=== PATIENT | female | born 2000 | race African-American/Black ===

== ENCOUNTER 2024-07-20 11:38 | Emergency (ER) | payer BC, SELFPAY ==
[2024-07-20 12:18] VITALS: BP 113/84; PULSE 108; RESP 16; TEMP 36.6; O2SAT 98
[2024-07-20 12:38] LABS: EDSTREPNEGPOS1 Negative (Negative)
--- NOTE | 2024-07-20 13:42 | PC.NURSE ---
1300 Patient aware of delay due to urgent situation; patient states she has had a nice nap.
--- NOTE | 2024-07-20 15:30 | ED.URI ---
HPI - URI/Sore Throat General Chief Complaint: Upper Respiratory Infection Stated Complaint: sore throat,running a fever,chills Time Seen by Provider: 07/20/24 12:24 Source: patient, RN notes reviewed and old records reviewed Mode of arrival: ambulatory Limitations: no limitations History of Present Illness HPI Narrative: 24-year-old female to Express Care for complaint of fever and sore throat for 3 days. Patient endorses that she is currently 8 weeks with her 1st . Patient states that she has taken Tylenol home with little relief. Patient afebrile but tachycardic in triage. Patient able to tolerate fluids by mouth. Patient denies difficulty swallowing, shortness of breath, abdominal pain, allergies, pertinent medical history. Patient resting in exam room, appears tired and uncomfortable. Respirations even and nonlabored. Patient in no acute distress. Related Data Home Medications Medication Instructions Recorded Confirmed prenat.vits,maryann,byu-benx-frssr 1 tablet PO DAILY 07/20/24 07/20/24 Allergies Allergy/AdvReac Type Severity Reaction Status Date / Time No Known Allergies Allergy Verified 07/20/24 12:17 Review of Systems Review of Systems: All systems reviewed & are unremarkable except as noted in HPI and below Constitutional: Constitutional: Reports as per HPI and Reports fever(s) Eyes: Eyes: Reports no additional eye complaints ENT: Reports as per HPI and Reports sore throat Cardiovascular: Cardiovascular: Reports no additional cardiovascular complaints, Denies chest pain and Denies dyspnea Respiratory: Respiratory: Reports no additional respiratory complaints, Denies cough and Denies dyspnea Musculoskeletal: Musculoskeletal: Reports no additional musculoskeletal complaints Neurologic: Reports system reviewed and no additional complaints, except as documented Psychiatric: Psychiatric: Reports no additional psychiatric complaints PMFSH Comments At the time of my signature, I reviewed and agree with the nursing past medical, surgical, social, and family history. There is no relevant family history pertinent to the patient complaint. Exam Const: General: cooperative, no acute distress, alert, tired appearing, uncomfortable and well nourished Nutritional Appearance: well nourished Orientation/consciousness: patient oriented x3 Limitations: no limitations HENMT: Head: normal to inspection Ears: external ears normal Face/Nose/Sinus: Normal external nose present, Normal nares present, normal facial exam, No erythema and No edema Face and sinus: normal facial exam, no erythema and no edema Mouth: Yes Normal oral and palatal mucosa present Throat: uvula midline, abnormal tonsil bilateral erythema, exudates and hypertrophy 2+ and posterior oropharynx abnormal erythema Eyes: General: appearance normal, both eyes and all related structures Neck: Neck: normal visual inspection, full ROM and no meningeal signs Lymphatic: no lymphadenopathy noted and no lymphedema noted Chest: Chest palpation & inspection: normal inspection of the chest Resp: Effort & Inspection: normal respiratory effort and able to speak in complete sentences Auscultation: clear to auscultation bilaterally Cardio: Jugular venous distension: no JVD Rate: regular rate Rhythm: regular rhythm Back/Spine/Pelvis: Cervical Spine: cervical ROM normal Skin: General skin exam: normal color, no rashes or lesions noted and turgor normal Neuro: General: patient oriented x3, gait normal, moves all extremities and no meningeal signs Speech: normal speech Gait exam (Neuro): Normal gait present Extrem: General: normal to inspection, full ROM and capillary refill normal Psych: Appearance: grossly normal and well kempt Course Course Emergency Course: Some parts of this dictation were generated by voice recognition software and may contain typographical and/or grammatical inaccuracies. Level of Care: Express Care Visit V
== END 2024-07-20 13:37 | disposition home or self-care (01) ==
PROVIDERS: Emergency Provider Nurse Practitioner Family
DX: J02.9 Acute pharyngitis, unspecified (principal)
CPT/HCPCS: 87081; 87880; 99213; G0463

== ENCOUNTER 2024-10-04 14:04 | Emergency (ER) | payer BC, SELFPAY ==
[2024-10-04 14:33] VITALS: BP 123/88; PULSE 102; RESP 18; TEMP 36.4; O2SAT 98
--- NOTE | 2024-10-04 16:15 | ED.SKABFB ---
HPI - Skin/Abscess/Foreign Bdy General Chief complaint: Skin/Abscess/Foreign Body Stated complaint: Inner Thigh Boil/Rash Time Seen by Provider: 10/04/24 15:26 Source: patient and RN notes reviewed Mode of arrival: ambulatory Limitations: no limitations History of Present Illness HPI narrative: Patient presents today with a large lump to the inner thigh since last night and a small lump to the anterior proximal upper leg. States she has not had lumps like this before. They are very painful to touch. No interventions prior to arrival. Related Data Home Medications ?Medication ?Instructions ?Recorded ?Confirmed ?Last Taken ?Type prenat.vits,maryann,drt-nyyx-pwgda 1 tablet PO DAILY 07/20/24 10/04/24 Unknown History Allergies Allergy/AdvReac Type Severity Reaction Status Date / Time No Known Allergies Allergy Verified 10/04/24 14:30 Review of Systems Review of Systems: CONSTITUTIONAL: Denies body aches, fever, chills, or sweats. EYES: Denies visual changes, redness, or discharge. ENT: Denies rhinorrhea, congestion, sore throat, or otalgia. CARDIOVASCULAR: Denies chest pain, palpitations, or edema. RESPIRATORY: Denies cough or dyspnea. GASTROINTESTINAL: Denies abdominal pain, nausea, vomiting, or diarrhea. GENITOURINARY: Denies dysuria or hematuria. SKIN: Two lumps to right upper leg MUSCULOSKELETAL: Denies back pain, joint pain, or myalgia. NEUROLOGIC: Denies headache, numbness, tingling, or weakness. PSYCH: Denies depression or anxiety. PMFSH Comments At time of signature, I have reviewed and agree with nursing past medical, surgical, social and family history unless otherwise noted. Please see nursing chart for further information. There is no relevant family history pertinent to the presenting complaint Exam Narrative: GENERAL: Well-appearing, well-nourished, and in no acute distress. HEAD: Normocephalic, atraumatic. EYES: EOMI. No redness or drainage. Conjunctivae normal. ENT: Mucous membranes pink and moist. NECK: Normal AROM. CHEST: No respiratory distress. EXTREMITIES: Normal range of motion. No edema. SKIN: Warm, dry, no rash. 1 x 1 cm fluctuant abscess to the right anterior upper thigh. Second abscess to the groin area was 5 x 3 cm fluctuant lesion, tender to palpation. NEURO: No focal deficits. Alert and oriented x3. Gait steady. PSYCH: Normal affect. No signs of depression or anxiety. Course Course Level of Care: Express Care Visit Vital Signs Vital signs: Vital Signs Temperature 97.5 F L 10/04/24 14:33 Pulse Rate 102 H 10/04/24 14:33 Respiratory Rate 18 10/04/24 14:33 Blood Pressure 123/88 10/04/24 14:33 Pulse Oximetry 98 10/04/24 14:33 Oxygen Delivery Room Air 10/04/24 14:33 Temperature 97.5 F L 10/04/24 14:33 Pulse Rate 102 H 10/04/24 14:33 Respiratory Rate 18 10/04/24 14:33 Blood Pressure 123/88 10/04/24 14:33 Pulse Oximetry 98 10/04/24 14:33 Oxygen Delivery Room Air 10/04/24 14:33 Reviewed Procedures Abscess I/D lower extremity: Date of Incision: 10/04/24 Time of Incision: 16:00 Side (if applicable): right Local Anesthetic: lidocaine 1% Amount of anesthesia used (mL): 6 (Between two abscesses) Technique: incised with #11 blade Amount of fluid expressed (mL): 3 Irrigation: No Packing used?: none I&D Results: Pus and Blood Abcess I&D Additional Comments: 2 abscesses were lanced, 1 large abscess to the inner groin area and a small abscess to the upper thigh. Over were cleansed with Betadine prior to procedure and dressed with Band-Aid afterwards. Patient tolerated procedure well. MDM - Skin/Abscess/Foreign Bdy MDM Narrative Medical decision making narrative: Abscesses lanced and drained. Patient will be placed on Keflex for infection. Anticipatory guidance given. Differential Diagnosis Differential diagnosis: Likely abscess of skin or subcutaneous tissue and cellulitis Critical Care Time Critical Care Time Critical Care Time: No Discharge Plan Discharge Clinical Impression: Abscess of skin or subcutaneous tissue Qualifiers: Site of cutaneous abscess: extremity Site of cutaneous abscess of extremity: lower extremity Laterality: right Qualified Code(s): L02.415 - Cutaneous abscess of right lower limb Patient Disposition: Home, Self-Care Condition: Stable Instructions: Antibiotic Form, Abscess (ED), Abscess Incision and Drainage (DC) Additional Instructions: Your abscesses were lanced and drained. Wash with soap and water daily. Do not washed with alcohol or peroxide. Do not use Neosporin. Do not submerge yourself in standing water such as pools, hot tubs, or bathtubs until your abscesses or scabbed over. Take the Keflex as prescribed until gone. Take Tylenol for pain if needed. Follow-up with your PCP or OBGYN in 3-4 days if symptoms are not improving. Your blood pressure was elevated above 120/80 today at Urgent Care. This puts you above the threshold for follow up. Please schedule a followup visit with your personal physician as soon as possible, for further evaluation and treatment. Even blood pressure exceeding 120/80 may indicate pre-hypertension. Patient Language: Marshallese Prescriptions: New cephalexin 500 mg capsule 500 mg PO Q6H 7 Days Qty: 28 0RF No Action Vitamin Tablet 1 tablet PO DAILY Follow-up/Referrals: PHYSICIAN,NAIL WELTER [Primary Care Provider] - Time of Disposition: 16:25
== END 2024-10-04 16:29 | disposition home or self-care (01) ==
PROVIDERS: Emergency Provider Nurse Practitioner
DX: L02.415 Cutaneous abscess of right lower limb (principal)
CPT/HCPCS: 10060; 99213; G0463; J2003

== ENCOUNTER 2025-01-01 00:52 | Inpatient (IN) | payer BC, MEDICAID, SELFPAY ==
[2025-01-01] VITALS (78 sets, daily range): BP systolic 104–158; BP diastolic 49–95; PULSE 73–142; RESP 16–21; TEMP 36.2–37.1; O2SAT 96–100; BMI 40.6
--- NOTE | ~2025-01-01 | US_ITS ---
Pelvic ultrasound CLINICAL HISTORY: biophysical profile, cervical length, SKYLAR FINDINGS: heart rate on M-mode image is 137 bpm. Fetus is in the vertex presentation. Placenta is infectious waste technician iorly located. Amniotic fluid index is 11.2. Cervix poorly visualized. BIOPHYSICAL PROFILE breathin out of 2. movement: 2 out of 2. tone: 2 out of 2. Amniotic fluid pocket: 2 out of 2. Biophysical profile score: 8 out of 8. IMPRESSION: 1. Single fetus with heart rate of 137 bpm. 2. Biophysical profile score of 8 out of 8. Reviewed, dictated and finalized at location M.
[2025-01-01] MEDS: DEXTROSE 5%/LACTATED RINGERS 1,000 ML 100 ML IV CONT (01:55)
--- NOTE | 2025-01-01 02:27 | P.HP_ITS ---
H&P: HPI History of Present Illness Date/Time: 01/01/25 02:27 Chief Complaint: Thirty-two weeks bleeding Narrative: 24-year-old 1 para 0 whose EDC is 02/26/2025 confirmed by early ultrasound presents at 32 weeks gestation was some bleeding. No bleeding has been seen here but recurrent variables are noted. Her has been complicated by an abnormal 1hours GTT but she could not do a 3hour to nausea and vomiting. Her her A1c was normal. She has received fluids and recurrent deep decelerations are noted. Review of Systems Review of Systems: CONSTITUTIONAL: Denies body aches, fever, chills, or sweats. EYES: Denies visual changes, redness, or discharge. ENT: Denies rhinorrhea, congestion, sore throat, or otalgia. CARDIOVASCULAR: Denies chest pain, palpitations, or edema. RESPIRATORY: Denies cough or dyspnea. GASTROINTESTINAL: Denies abdominal pain, nausea, vomiting, or diarrhea. GENITOURINARY: Denies dysuria or hematuria. SKIN: Two lumps to right upper leg MUSCULOSKELETAL: Denies back pain, joint pain, or myalgia. NEUROLOGIC: Denies headache, numbness, tingling, or weakness. PSYCH: Denies depression or anxiety. Meds Home Medications and Allergies Home Medications ?Medication ?Instructions ?Recorded ?Confirmed ?Type prenat.vits,maryann,ida-gmzi-maznm 1 tablet PO DAILY 07/20/24 10/04/24 History cephalexin 500 mg capsule 500 mg PO Q6H 7 days #28 caps 10/04/24 Rx Allergies Allergy/AdvReac Type Severity Reaction Status Date / Time No Known Allergies Allergy Verified 10/04/24 14:30 Vital Signs Vital Signs - 24 hr 01/01/25 01:01 01/01/25 01:06 01/01/25 01:11 Pulse Rate 80 Blood Pressure 133/70 Pulse Oximetry 98 98 99 01/01/25 01:15 01/01/25 01:16 01/01/25 01:21 Pulse Rate 80 Blood Pressure 123/73 Pulse Oximetry 99 98 01/01/25 01:26 01/01/25 01:30 01/01/25 01:31 Pulse Rate 91 Blood Pressure 128/74 Pulse Oximetry 99 98 01/01/25 01:36 01/01/25 01:41 01/01/25 01:46 Pulse Rate Blood Pressure Pulse Oximetry 98 98 99 01/01/25 01:49 01/01/25 01:54 01/01/25 01:59 Pulse Rate Blood Pressure Pulse Oximetry 99 97 98 01/01/25 02:04 01/01/25 02:09 01/01/25 02:14 Pulse Rate Blood Pressure Pulse Oximetry 98 99 97 01/01/25 02:19 01/01/25 02:24 01/01/25 02:26 Pulse Rate 97 Blood Pressure 133/92 H Pulse Oximetry 98 98 Exam Narrative: GENERAL: Well-appearing, well-nourished, and in no acute distress. HEAD: Normocephalic, atraumatic. EYES: EOMI. No redness or drainage. Conjunctivae normal. ENT: Mucous membranes pink and moist. NECK: Normal AROM. CHEST: No respiratory distress. EXTREMITIES: Normal range of motion. No edema. SKIN: Warm, dry, no rash. 1 x 1 cm fluctuant abscess to the right anterior upper thigh. Second abscess to the groin area was 5 x 3 cm fluctuant lesion, tender to palpation. NEURO: No focal deficits. Alert and oriented x3. Gait steady. PSYCH: Normal affect. No signs of depression or anxiety. Const: General: cooperative, healthy appearing and comfortable Nutritional Appearance: overweight Orientation/consciousness: oriented to person, oriented to place and oriented to time HENMT: Head: normal to inspection Resp: Effort & Inspection: normal respiratory effort Cardio: Rate: regular rate Rhythm: regular rhythm Heart sounds: S1 normal heart sound present and S2 normal heart sound present GI: Inspection: normal to inspection : External Female Exam: normal external appearance Speculum Exam - Vagina: normal appearance of the vagina Speculum Exam - Cervix: normal appearance of the cervix (No active bleeding seen. Recurrent decelerations noted) Assessment and Plan Assessment and plan (1) with history of pre-term labor: Code(s): O09.219 - Supervision of with history of pre-term labor, unspecified trimester Status: Acute (2) Bleeding: Code(s): R58 - Hemorrhage, not elsewhere classified Status: Acute Plan Patient will need section. Furnace Builder made aware.
--- OUTSIDE RECORDS SUMMARY | 2025-01-01 02:35 | XMS_ITS | CONTINUITY OF CARE DOCUMENT ---
Author Name aleksandra lake Address Unknown Organization [facility] Address [address] [place] [address] Phone [phone] Care Team Providers Care Winder Hand Name Role Phone Damaris Bojorquez MD Unavailable Damaris Bojorquez MD Unavailable [phone] INSURANCE PROVIDERS Payer name Policy type / Coverage type [place] red [employer] party ID SELF PAY HEALTHCARE AND FAMILY SERVICES Medicaid 1 [id number] [facility] [id number]
--- OUTSIDE RECORDS SUMMARY | 2025-01-01 02:35 | XMS_ITS | CONTINUITY OF CARE DOCUMENT ---
Author Name aleksandra lake Address Unknown Organization [facility] Address [address] [place] [address] Phone [phone] Care Team Providers Care Leasing Machine Tender Name Role Phone Damaris Bojorquez MD Unavailable Damaris Bojorquez MD Unavailable [phone] INSURANCE PROVIDERS Payer name Policy type / Coverage type [place] red republican ID SELF PAY HEALTHCARE AND FAMILY SERVICES Medicaid 1 [id number] [facility] [id number]
--- NOTE | 2025-01-01 02:47 | P.PNAN_ITS ---
Anes - Initial Pre Proc Eval Procedure: Primary C/S Date/Time: 01/01/25 02:47 Surgeon: Ayaz Walker MD Pre Op Diagnosis: Pre term labor, non reassuring testing Pre Op Diagnosis: vaginal bleeding, cramping Patient Data Age: 24 Gender: F Height: 1.7 m Weight: 117.7 kg Last Vital Signs Pulse 82 01/01/25 02:30 BP 139/86 01/01/25 02:30 Pulse Ox 100 01/01/25 02:44 Allergies Allergy/AdvReac Type Severity Reaction Status Date / Time No Known Allergies Allergy Verified 01/01/25 02:45 Home Medications ?Medication ?Instructions ?Recorded ?Confirmed ?Type prenat.vits,maryann,exn-oaqs-rbioj 1 tablet PO DAILY 07/20/24 01/01/25 History cephalexin 500 mg capsule 500 mg PO Q6H 7 days #28 caps 10/04/24 Rx hydrocodone 5 mg-acetaminophen 325 1 tablet PO Q4H PRN pain #30 tabs 01/01/25 Rx mg tablet Patient hx anesthesia problems: none Family hx anesthesia problems: none Results Review: All pre-operative results and documents have been reviewed as part of the pre- operative evaluation. Anes - Eval Final PreProcedure Day of Procedure 01/01/25 02:47 Patient weight: morbidly obese Heart: regular rate and rhythm Lungs: clear to auscultation and normal air movement Airway: Mallampati scale class II Neurological: alert and oriented Last oral intake: >/= 8 hours ASA classification: III Emergent: no Anesthetic plan: proceed Anesthesia type and monitoring: regional spinal and standard monitoring Results Review: All pre-operative results and documents have been reviewed as part of the pre- operative evaluation. Informed Consent: The patient's anesthetic plan and its attendant risks and benefits were discussed with the patient/family/POA. Questions were solicited and answers provided to the satisfaction of the patient/family/POA.
[2025-01-01 03:00] LABS: Basophils Percent Auto 0.1 % (0.2-1.2); Eosinophils Absolute Auto 0.1 K/mm3 (0-0.3); Eosinophils Percent Auto 0.7 % (0-4.4); Hematocrit 38.6 % (37.0-47.0); Immature Granulocyte Absolute 0.04 K/mm3 (0.00-0.031); Immature Granulocyte Percent A 0.5 % (0-0.5); Lymphocytes Absolute Auto 1.66 K/mm3 (0.9-3.2); Lymphocytes Percent Auto 20.6 % (18.3-44.2); Mean Corpuscular HGB Conc 33.7 g/dl (32-36); Mean Corpuscular Hemoglobin 29.7 pg (26-34); Mean Corpuscular Volume 88.1 fl (80-100); Mean Platelet Volume 8.9 fl (7.4-10.4); Monocytes Absolute Auto 0.5 K/mm3 (0.1-0.6); Monocytes Percent Auto 6.6 % (2.6-8.5); Neutrophils Absolute Auto 5.7 K/mm3 (1.3-6.7); Neutrophils Percent Auto 71.5 % (45.5-73.1); Platelet Count Result 224 k/mm3 (150-375); Red Blood Count 4.38 M/mm3 (4.2-5.4); Red Cell Distribution Width 13.1 % (11.5-14.5)
[2025-01-01] MEDS: ACETAMINOPHEN 500 MG TABLET 1000 MG PO (03:06)
[2025-01-01] MEDS: FAMOTIDINE 20 MG/2 ML VIAL IV PUSH (03:07)
[2025-01-01] MEDS: ONDANSETRON INJ 4 MG/2 ML VIAL IV PUSH (03:07)
[2025-01-01 03:10] LABS: Alanine Aminotransferase 29 U/L (6-35); Albumin Level 3.9 g/dL (3.5-5.1); Alkaline Phosphatase 110 U/L (38-126); Anion Gap 11 mmol/L (4-12); Aspartate Amino Transferase 28 U/L (14-36); Bilirubin,Total 0.5 mg/dL (0.2-1.3); Blood Urea Nitrogen 4 mg/dL (7-17); Calcium 9.3 mg/dL (8.4-10.2); Carbon Dioxide 20 mmol/L (22-30); Chloride 104 mmol/L (98-107); Estimated CRCL calculation 173 ml/min; Estimated Glomerular Filt Rate > 60; Glucose 177 mg/dL (65-110); Potassium 3.7 mmol/L (3.4-5.0); Sodium 135 mmol/L (137-145)
[2025-01-01 03:51] LABS: HIV 1/2 Ab P24 Ag Result Negative (Negative)
[2025-01-01 03:53] LABS: Syphilis IgG/IgM Antibody Negative (Negative)
--- NOTE | 2025-01-01 04:03 | W.PM.OBCSD ---
OB - Delivery Note Procedure Delivery date: 01/01/25 Pre-op diagnosis: Other (Bleeding and nonreassuring heart tones) Post-op Diagnosis: Same Induction method: None Delivery monitor: External FHT and External Uterine Prior to decision for section, ACOG/SM labor guidelines were considered and discussed with the patient and staff. Decision made to proceed with the section.: Yes Procedure Performed: Primary Surgeon: Ayaz Walker MD Anesthesia type: Spinal Description of Procedure/Findings: The patient was admitted at 32 weeks gestation with possible rupture of membranes and vaginal bleeding recurrent deep decelerations were present. She was offered low-transverse section as there was no time to transfer. After tape formed consent she was taken back prepped draped in normal sterile fashion placed in the supine position. Under excellent spinal anesthetic the abdomen was entered in Pfannenstiel fashion progressive layers of fascia. Fascia incised midline carried number dock fashion bilaterally. Underlying muscles sharply dissected. Parietal peritoneum male by Sahara clamps and by sharp dissection carried superiorly and inferiorly dome of the bladder. Bladder blade was placed in a bladder blade returned a low transverse incision made there was virtually no thinning of the lower uterine segment it was a couple inches thick. The breech was delivered double footling followed by sweeping the arms medially and the head in a flexed position cord clamped x2 cut infant passed off the table with a small cry placenta delivered intact manually. Uterus delivered on the abdomen wrapped in moist towel. After assuring no membranes or debris remained in the uterus, uterus closed continuous running locking 0 Vicryl from lateral edge to lateral edge this was repeated with a 2nd imbricating running locking 0 Vicryl from lateral edge to lateral edge. Hemostasis was assured. Ovaries and tubes appeared within normal limits. The hysterotomy incision appeared the intact. The uterus returned to the abdomen. The laps removed and accounted for the hysterotomy incision inspected last time. The incision on the fascia then closed with continuous running 0 Vicryl from lateral edge to lateral edge. Irrigation subcutaneous layer and the skin closed with 4 Monocryl QBL was 330. All sponge needle instrument counts were correct. Cardinal Lorenzo had been called in the form the transfer team in is working on the baby at this point. There were no immediate complications Estimated Blood Loss: 330 Drains: No Packing: No Pathology: Yes (Placenta) Complications: No immediate complications Condition: Stable Disposition: PACU [place] Baby Date of : 01/01/25 Time of : 03:45 Gestational Age by Date: 32 Infant gender: Male presentation: other (Double footling breech) Placenta delivery description: Manual Removal Cord Vessel Description: 3 Vessels
--- NOTE | 2025-01-01 04:07 | P.DS_ITS ---
DS: Admitting Diagnosis Discharge Date 01/02/2025 Admitting Diagnosis labor/bleeding DS: Discharge Diagnosis Discharge Diagnosis (1) with history of pre-term labor: Code(s): O09.219 - Supervision of with history of pre-term labor, unspecified trimester Status: Acute (2) Bleeding: Code(s): R58 - Hemorrhage, not elsewhere classified Status: Acute DS: Summary Hospital Course Reason for hospitalization: Patient was admitted at 32 weeks gestation with bleeding breech presentation and nonreassuring heart tones she underwent low-transverse section on the precision honing machine operator of . Hospital Course: Patient's hospital course unremarkable. She remained afebrile. She was up, vo iding without difficulty, eating regular diet, ambulating, voiding without difficulty and generally without complaints. Time Spent with Patient Time attestation: Total time spent providing and/or coordinating discharge services: Exam Const: General: cooperative, healthy appearing and comfortable Orientation/consciousness: oriented to person, oriented to place and oriented to time Resp: Effort & Inspection: normal respiratory effort Cardio: Rate: regular rate Rhythm: regular rhythm Heart sounds: S1 normal heart sound present and S2 normal heart sound present GI: Inspection: normal to inspection and incision (Wound is clean dry and intact) DS: Data Data Completed and Pending Labs on day of discharge: Labs from last 24 hours 01/01/25 02:53 WBC 8.0 RBC 4.38 Hgb 13.0 Hct 38.6 MCV 88.1 MCH 29.7 MCHC 33.7 RDW 13.1 Plt Count 224 MPV 8.9 Immature Gran % (Auto) 0.5 Neut % (Auto) 71.5 Lymph % (Auto) 20.6 Kimball % (Auto) 6.6 Eos % (Auto) 0.7 Baso % (Auto) 0.1 L Lymph # (Auto) 1.66 Kimball # (Auto) 0.5 Eos # (Auto) 0.1 Baso # (Auto) 0.0 Abs Immat Gran (auto) 0.04 H Absolute Neuts (auto) 5.7 Absolute Nucleated RBC 0.000 Nucleated RBC % 0.0 Sodium 135 L Potassium 3.7 Chloride 104 Carbon Dioxide 20 L Anion Gap 11 BUN 4 L Creatinine 0.55 L Estim Creat Clear Calc 173 Estimated GFR > 60 Glucose 177 H Calcium 9.3 Total Bilirubin 0.5 AST 28 ALT 29 Alkaline Phosphatase 110 Total Protein 7.0 Albumin 3.9 Syphilis IgG/IgM Ab Negative HIV 1&2 Ab/P24 Ag 4thGn Negative Blood Type B Positive Antibody Screen Negative Discharge Plan Discharge Attending physician on discharge: Ayaz Salvador Discharging Clinician: Ayaz Salvador Patient Disposition: Home, Self-Care Activity: may shower, no straining and pelvic rest Diet: heart healthy Wound Care Instructions: follow printed instructions Patient Instructions: Antibiotic Form Patient Language: Canadian Stand Alone Forms: General Discharge Information Follow-up/Referrals: Ayaz Salvador MD [Physician] - Discharge Medications: New hydrocodone-acetaminophen 5-325 mg tablet 1 tablet PO Q4H PRN (Reason: pain) Qty: 30 0RF Continued Vitamin Tablet 1 tablet PO DAILY Date of admission: 01/01/25 00:52 Primary Care Provider: PHYSICIAN,SUPERVISOR INSPECTING Admitting Provider: Ayaz Salvador Attending physician on admission: Ayaz Salvador Condition: Stable
--- NOTE | 2025-01-01 05:34 | LDADM ---
This patient, aKtalina Villa, was admitted to Labor/Delivery/Recovery 119 on 01/01/25 at 00:52. Plans for labor, pain management and were discussed with patient. Patient/family oriented to hospital policies and general routines including ID bracelet, bed and alarms, visiting hours, pain management, procedures, bathroom and other care routines, personal items, smoking policy, room service/diet and guest tray routines, infant security routines, and visiting hours. Patient/Family are encouraged to report perceived risks to care and to ask questions if they do not understand what they are told or what they should do. See OBIX for further documentation.
[2025-01-01] MEDS: OXYTOCIN 30 UNITS/NS 500 ML 30 UNITS/500 ML BAG 125 UNITS IV CONT (05:35)
[2025-01-01 06:44] LABS: Amphetamine Screen Urine Negative (Negative); Barbiturate Screen Urine Negative (Negative); Benzodiazepines Screen Urine Negative (Negative); Cannabinoid Screen Urine Negative (Negative); Cocaine Screen Urine Negative (Negative); Methadone Screen Urine Negative (Negative); Opiate Screen Urine Negative (Negative); Phencyclidine Screen Urine Negative (Negative)
[2025-01-01] MEDS: DEXTROSE 5%/0.45% SOD CHL 1,000 ML 125 ML IV CONT (09:10)
[2025-01-01] MEDS: MULTIVIT/MIN/PREN/FOL AC/IRON TABLET 1 TAB PO (09:55)
[2025-01-01] MEDS: SIMETHICONE 80 MG TAB.CHEW PO ×2 (09:55→14:25)
[2025-01-01] MEDS: ACETAMINOPHEN 325 MG TABLET 650 MG PO ×3 (09:55→22:27)
[2025-01-01] MEDS: DOCUSATE SODIUM 100 MG CAPSULE PO ×2 (09:55→16:15)
[2025-01-01] MEDS: KETOROLAC 15 MG/ML VIAL (*BKC) IV PUSH ×3 (09:55→22:27)
--- NOTE | 2025-01-01 10:00 | PC.NURSE ---
Introductions were made, then consulted with patient to assess needs related to . Breast pump was then provided due to baby being transferred to [facility], mother given a hospital breast pump and kit, she has her own Spectra pump at home but not sure when someone can bring it in for her. Instructions given on cleaning, care, usage, that there should be no pain, pumping schedule for milk production, collection, and storage of human milk. Patient was assessed for correct placement, flange size, to pump for comfort and nipple stretching/stimulation for adequate milk production every 3 hours (8 times in 24 hours) 1-2 times at night. Parents are encouraged to record the pumping schedule on the pumping log provided.?Mother voiced understanding of the education shared along with mom/baby guide and the pump measurement, flange fit handout for additional resource information. Resources provided for inpatient and outpatient services with the mom/baby guide and name written on the communication board. Mother voiced understanding of information and will call if there is a request for assistance. Reported to the Primary RN.
[2025-01-01] MEDS: diphenhydrAMINE HCl CAP 25 MG CAPSULE PO (14:25)
[2025-01-02] MEDS: ACETAMINOPHEN 325 MG TABLET 650 MG PO ×2 (04:43→10:14)
[2025-01-02] MEDS: KETOROLAC 15 MG/ML VIAL (*BKC) IV PUSH (04:44)
[2025-01-02 04:45] VITALS: BP 109/73; PULSE 78; RESP 16; TEMP 36.5; O2SAT 98
[2025-01-02 05:03] LABS: Basophils Percent Auto 0.4 % (0.2-1.2); Eosinophils Absolute Auto 0.1 K/mm3 (0-0.3); Eosinophils Percent Auto 1.3 % (0-4.4); Hematocrit 37.2 % (37.0-47.0); Hemoglobin 12.5 g/dL (12.0-15.0); Immature Granulocyte Absolute 0.04 K/mm3 (0.00-0.031); Immature Granulocyte Percent A 0.4 % (0-0.5); Lymphocytes Absolute Auto 1.51 K/mm3 (0.9-3.2); Lymphocytes Percent Auto 13.7 % (18.3-44.2); Mean Corpuscular HGB Conc 33.6 g/dl (32-36); Mean Corpuscular Hemoglobin 29.6 pg (26-34); Mean Corpuscular Volume 87.9 fl (80-100); Mean Platelet Volume 9.2 fl (7.4-10.4); Monocytes Absolute Auto 0.6 K/mm3 (0.1-0.6); Monocytes Percent Auto 5.8 % (2.6-8.5); Neutrophils Absolute Auto 8.6 K/mm3 (1.3-6.7); Neutrophils Percent Auto 78.4 % (45.5-73.1); Platelet Count Result 195 k/mm3 (150-375); Red Blood Count 4.23 M/mm3 (4.2-5.4); Red Cell Distribution Width 13.1 % (11.5-14.5)
--- NOTE | 2025-01-02 07:18 | PM.OBPNVD ---
OB - PN: Subj Subjective Date/time seen: 01/02/25 07:18 Patient comments: no complaints, pain well controlled, tolerating diet and flatus present OB - PN: Obj Data Labs 01/02/25 04:51 01/01/25 02:53 Labs: Laboratory Results - last 24 hr 01/02/25 04:51 WBC 11.0 H RBC 4.23 Hgb 12.5 Hct 37.2 MCV 87.9 MCH 29.6 MCHC 33.6 RDW 13.1 Plt Count 195 MPV 9.2 Immature Gran % (Auto) 0.4 Neut % (Auto) 78.4 H Lymph % (Auto) 13.7 L Dougherty % (Auto) 5.8 Eos % (Auto) 1.3 Baso % (Auto) 0.4 Lymph # (Auto) 1.51 Dougherty # (Auto) 0.6 Eos # (Auto) 0.1 Baso # (Auto) 0.0 Abs Immat Gran (auto) 0.04 H Absolute Neuts (auto) 8.6 H Absolute Nucleated RBC 0.000 Nucleated RBC % 0.0 OB - PN A/P Assessment and Plan (1) with history of pre-term labor: Code(s): O09.219 - Supervision of with history of pre-term labor, unspecified trimester Status: Acute Plan home Time Spent With Patient Time: Total time spent is greater than 50% in coordination of care (as documented) at patient's floor/unit and/or counseling patient: Review of Systems Review of Systems: CONSTITUTIONAL: Denies body aches, fever, chills, or sweats. EYES: Denies visual changes, redness, or discharge. ENT: Denies rhinorrhea, congestion, sore throat, or otalgia. CARDIOVASCULAR: Denies chest pain, palpitations, or edema. RESPIRATORY: Denies cough or dyspnea. GASTROINTESTINAL: Denies abdominal pain, nausea, vomiting, or diarrhea. GENITOURINARY: Denies dysuria or hematuria. SKIN: Two lumps to right upper leg MUSCULOSKELETAL: Denies back pain, joint pain, or myalgia. NEUROLOGIC: Denies headache, numbness, tingling, or weakness. PSYCH: Denies depression or anxiety. Exam Const: General: cooperative, healthy appearing and comfortable Orientation/consciousness: oriented to person, oriented to place and oriented to time Resp: Effort & Inspection: normal respiratory effort Cardio: Rate: regular rate Rhythm: regular rhythm Heart sounds: S1 normal heart sound present and S2 normal heart sound present GI: Inspection: normal to inspection and incision (cdi)
[2025-01-02 08:00] VITALS: BP 122/74; PULSE 88; RESP 16; TEMP 36.6; O2SAT 99
[2025-01-02] MEDS: DOCUSATE SODIUM 100 MG CAPSULE PO (08:10)
[2025-01-02] MEDS: SIMETHICONE 80 MG TAB.CHEW PO (08:10)
[2025-01-02] MEDS: MULTIVIT/MIN/PREN/FOL AC/IRON TABLET 1 TAB PO (08:10)
--- NOTE | 2025-01-02 09:52 | PC.NURSE ---
Introductions were made and communication board updated. Mother denies any additional questions regarding pumping at this time. Mother is eager to go see at [facility]. Discussed support provided at [facility] and additional support offered at [facility] once she is home with and contact information for outpatient services was given. Mother appears received that there will be support once she is discharged and states that it has been hard to pump without her infant being here.
[2025-01-02] MEDS: IBUPROFEN 600 MG TABLET PO (10:14)
--- NOTE | 2025-01-02 13:14 | WPDANLDNPN2 ---
Anes-Prog Note L&D-Neuraxial Date/Time: 01/02/25 13:14 Patient feedback: Patient satisfied with post-operative pain management.
--- NOTE | 2025-01-02 13:15 | WPDANLDPN2 ---
Anes-Prog Note L&D Date/Time: 01/02/25 13:15 Neuro status: Neuro function grossly intact. Vital Signs: Last Vital Signs Temp 36.6 C 01/02/25 08:00 Pulse 88 01/02/25 08:00 Resp 16 01/02/25 08:00 BP 122/74 01/02/25 08:00 Pulse Ox 99 01/02/25 08:00 O2 Del Method Room Air 01/01/25 06:11 Pain score (VAS): 0 I/O: Intake & Output 01/01/25 01/02/25 01/02/25 23:59 07:59 15:59 Intake Total 1500 Output Total 1600 800 Balance -100 -800 Patient feedback: Patient satisfied with anesthetic care.
[2025-01-04 10:09] VITALS: BP 127/66; PULSE 97; RESP 16; TEMP 36.6; O2SAT 98
== END 2025-01-02 10:15 | disposition home or self-care (01) | DRG 788 ==
LOC: ANHOBPP 02:33 → ANHLDR 04:19 → ANHOB2 06:46
PROVIDERS: Admitting Provider Obstetrics & Gynecology; Visit Provider Obstetrics & Gynecology
PROC: 10D00Z1 Extraction of Products of Conception, Low, Open Approach (ICD-10-PCS; CPT 59514; principal; 2025-01-01 03:15)
DX: O60.14X0 Preterm labor third trimester with preterm delivery third trimester, not applicable or unspecified (principal); O76 Abnormality in fetal heart rate and rhythm complicating labor and delivery; O32.8XX0 Maternal care for other malpresentation of fetus, not applicable or unspecified; O67.9 Intrapartum hemorrhage, unspecified; Z3A.32 32 weeks gestation of pregnancy; Z37.0 Single live birth
CPT/HCPCS: 36415; 76819; 80053; 80307; 85025; 86593; 86703; 86850; 86900; 86901; A9270; G0432; J1885; J2274; J2405; J2590; J7121